=== PATIENT | female | born 1955 | race Asian ===

== ENCOUNTER 2018-03-08 22:10 | Emergency (ER) | payer SELFPAY ==
[~2018-03-08] VITALS: Ht 167.6 cm; Wt 59.0 kg
--- NOTE | 2018-03-08 22:20 | NUR ---
Dr. Duarte at bedside for MSE.
[2018-03-08] MEDS ORDERED: HYDROCODONE/APAP 5-325MG TABLET PO ONE (22:30)
[2018-03-08] MEDS ORDERED: TDAP DIPH,PERTUSS,TET VAC/PF 0.5 ML DISP.SYRIN IM ONE ×2 (22:30→22:33)
[2018-03-08] MEDS ORDERED: MISCELLANEOUS MED XX ONE (22:30)
[2018-03-08] MEDS ORDERED: HYDROCODONE/APAP 5-325MG TABLET ONE (22:33)
--- NOTE | 2018-03-08 23:15 | NUR ---
Patient came to ER with , c/o laceration on left middle finger, reports was cutting a watermelon.
--- NOTE | 2018-03-08 23:25 | NUR ---
Patient discharged to home in stable conditon. Written and verbal after care instructions given. Patient verbalizes understanding of instructions. Patient ambulated out of ER with steady gait, no acute signs of distress, VSS, all belongings taken.
[2018-03-08 23:32] VITALS: BP 139/73
== END 2018-03-08 23:30 | disposition home or self-care (01) ==
LOC: ER 22:12
DX: S61.213A Laceration without foreign body of left middle finger without damage to nail, initial encounter (principal); S61.301A Unspecified open wound of left index finger with damage to nail, initial encounter; X58.XXXA Exposure to other specified factors, initial encounter; Y93.89 Activity, other specified; Y92.89 Other specified places as the place of occurrence of the external cause; Y99.8 Other external cause status
CPT/HCPCS: 12002; 90471; 90715; 99283; A4217; A4663